=== PATIENT | male | born 1970 ===

== ENCOUNTER 2020-07-23 15:05 | Outpatient (CLI) | payer OTHER | END 2020-07-23 16:28 | disposition home or self-care (01) | LOC: OFIC 805 15:05 | PROVIDERS: ATTEND Otolaryngology Otology & Neurotology | DX: H73.21 Unspecified myringitis, right ear (principal); H60.8X1 Other otitis externa, right ear; H92.11 Otorrhea, right ear; H90.11 Conductive hearing loss, unilateral, right ear, with unrestricted hearing on the contralateral side; H61.21 Impacted cerumen, right ear ==

== ENCOUNTER 2020-08-01 10:01 | Outpatient (CLI) | payer OTHER | END 2020-08-01 12:34 | disposition home or self-care (01) | LOC: OFIC 805 10:01 | PROVIDERS: ATTEND Otolaryngology Otology & Neurotology | DX: H73.21 Unspecified myringitis, right ear (principal); H60.8X1 Other otitis externa, right ear; H92.11 Otorrhea, right ear; H90.11 Conductive hearing loss, unilateral, right ear, with unrestricted hearing on the contralateral side; H72.91 Unspecified perforation of tympanic membrane, right ear ==